=== PATIENT | female | born 1965 | race Caucasian/White ===

== ENCOUNTER 2017-12-28 16:48 | Emergency (ER) | payer MEDICARE, MEDICAID ==
[~2017-12-28] VITALS: Ht 165.1 cm; Wt 60.0 kg
[2017-12-28 16:56] VITALS: BP 110/68
== END 2017-12-28 18:15 | disposition left against medical advice (07) ==
LOC: ER 18:10
DX: R07.89 Other chest pain (principal); R00.2 Palpitations; Z53.21 Procedure and treatment not carried out due to patient leaving prior to being seen by health care provider